=== PATIENT | female | born 1955 | race Caucasian/White ===

== ENCOUNTER 2017-05-21 09:56 | Inpatient (IN) | payer OTHER ==
[~2017-05-21] VITALS: Ht 170.2 cm; Wt 128.5 kg
[2017-05-21] VITALS (12 sets, daily range): BP systolic 85–115; BP diastolic 33–66
[2017-05-21 10:44] LABS: PLATELET COUNT 227 x10^3mcL (130-400)
[2017-05-21 10:45] LABS: CALCIUM 8.5 mg/dL (8.5-10.1); CARBON DIOXIDE 12.5 mmol/L (21-32); CHLORIDE SERUM 100 mmol/L (98-107); CREATININE SERUM 2.3 mg/dL (0.6-1.0); GFR1 23 mL/min; GLUCOSE SERUM 135 mg/dL (74-106); POTASSIUM SERUM 4.1 mmol/L (3.5-5.1); SODIUM SERUM 138 mmol/L (136-145)
[2017-05-21 10:47] LABS: RED CELL DISTRIBUTION WIDTH 20.3 % (11.5-14.5)
[2017-05-21 10:50] LABS: ALKALINE PHOSPHATASE 154 U/L (46-116); ALT/SGPT 31 U/L (14-59); AST/SGOT 85 U/L (15-37); BILIRUBIN TOTAL 1.2 mg/dL (0.20-1.00); TOTAL PROTEIN, SERUM 6.6 g/dL (6.4-8.2)
[2017-05-21 10:55] LABS: ALBUMIN 1.1 g/dL (3.4-5.0); CHOLESTEROL 102 mg/dL (<200)
[2017-05-21 12:40] LABS: BAND NEUTROPHIL 22 % (0-10); BASOPHIL 0 % (0-2); METAMYELOCTE 4 % (0-2); MONOCYTE 5 % (0-7); MYELOCYTE 1 % (0-2); SEGMENTED NEUTROPHILS 35 % (37-75); ovalocyte/elliptocyte 1+; rbc morphology (normal/abnorm) ABNORMAL (NORMAL)
[2017-05-21 12:41] LABS: PLATELET MORPHOLOGY GIANT PLATELET SEEN; tear drop cell (dacryocyte) 1+
[2017-05-21] MEDS ORDERED: ZOF4 PO (12:55)
[2017-05-21] MEDS ORDERED: IBUPROFEN600 MG PO (12:55)
[2017-05-21] MEDS ORDERED: NORCO1 TA2 PO (12:56)
[2017-05-21 13:11] LABS: UA SPECIFIC GRAVITY 1.015 (1.005-1.035); microscopic required? YES; urine erythrocyte TRACE (NEGATIVE)
[2017-05-21 13:33] LABS: AMPHETAMINE QUAL UR NONE DETECTED (NEG <=1000)
[2017-05-21 14:18] LABS: T3 TOTAL 0.74 ng/mL
[2017-05-21 14:32] LABS: PHOSPHOROUS 8.3 mg/dL (2.5-4.9)
[2017-05-21 14:42] LABS: FREE T4 1.14 ng/dL (0.76-1.46); FREE THYROXINE INDEX 2.8 ug/dL (1.4-4.5); T4(THYROXINE) 8.7 ug/dL (4.7-13.3)
[2017-05-21 20:06] LABS: IRON 77 ug/dL (50-170)
[2017-05-21 20:09] LABS: TOTAL IRON BINDING CAPACITY 76 ug/dL (250-450)
[2017-05-21 20:23] LABS: RED BLOOD CELLS 2.37 M/mm3 (4.10-5.10)
[2017-05-22] VITALS (10 sets, daily range): BP systolic 102–137; BP diastolic 59–87; Ht 170.2 cm; Wt 128.5 kg
[2017-05-22 06:14] LABS: PLATELET COUNT 110 x10^3mcL (130-400); RED CELL DISTRIBUTION WIDTH 19.5 % (11.5-14.5)
[2017-05-22 06:23] LABS: CALCIUM 7.1 mg/dL (8.5-10.1); CARBON DIOXIDE 18.6 mmol/L (21-32); CREATININE SERUM 2.4 mg/dL (0.6-1.0); MAGNESIUM 1.3 mg/dL (1.8-2.4); PHOSPHOROUS 5.6 mg/dL (2.5-4.9)
[2017-05-22 06:29] LABS: POTASSIUM SERUM 2.9 mmol/L (3.5-5.1)
[2017-05-22 08:58] LABS: BAND NEUTROPHIL 20 % (0-10); BASOPHIL 0 % (0-2); METAMYELOCTE 5 % (0-2); MONOCYTE 6 % (0-7); MYELOCYTE 2 % (0-2); SEGMENTED NEUTROPHILS 60 % (37-75)
[2017-05-22 08:59] LABS: rbc morphology (normal/abnorm) ABNORMAL (NORMAL)
[2017-05-22 09:02] LABS: ovalocyte/elliptocyte 1+; tear drop cell (dacryocyte) 1+
== END 2017-05-22 14:01 | disposition short-term general hospital (02) | DRG 871 ==
LOC: ED 09:56 → IC 12:00
PROVIDERS: Emergency Medicine; ADMIT Family Medicine
PROC: 0BH17EZ Insertion of Endotracheal Airway into Trachea, Via Natural or Artificial Opening (ICD-10-PCS; principal; 2017-05-21)
PROC: 5A1945Z Respiratory Ventilation, 24-96 Consecutive Hours (ICD-10-PCS; 2017-05-21)
DX: A41.9 Sepsis, unspecified organism (principal); R65.21 Severe sepsis with septic shock; J69.0 Pneumonitis due to inhalation of food and vomit; J96.00 Acute respiratory failure, unspecified whether with hypoxia or hypercapnia; N17.0 Acute kidney failure with tubular necrosis; E43 Unspecified severe protein-calorie malnutrition; L03.311 Cellulitis of abdominal wall; L03.116 Cellulitis of left lower limb; Z68.41 Body mass index [BMI] 40.0-44.9, adult; C55 Malignant neoplasm of uterus, part unspecified; I10 Essential (primary) hypertension; R73.03 Prediabetes; D64.9 Anemia, unspecified; E83.39 Other disorders of phosphorus metabolism; E78.2 Mixed hyperlipidemia; Z85.42 Personal history of malignant neoplasm of other parts of uterus
CPT/HCPCS: 36600; 82962; 83880; 84439; A4628; G0480; J1956; J2310; J2704; J2916; J3370; J3475; J3480; J3490; J7030; J7620; Q0092